=== PATIENT | male | born 1955 | race Caucasian/White ===

== ENCOUNTER 2023-10-28 05:36 | Emergency (ER) | payer MEDICARE, SELFPAY ==
--- NOTE | ~2023-10-28 | CT_ITS ---
EXAMINATION: CTA chest PE protocol DATE: 10/28/2023 09:53 INDICATION: Chest pain. Elevated d-dimer. TECHNIQUE: Computed tomography (CT) pulmonary angiogram of the chest was performed with 100 mL Omnipa que-350 intravenous contrast. Additional 3D reconstructions utilizing coronal maximum intensity proje ction (MIP) were performed. Automated exposure control and iterative reconstruction technique were em ployed. The dose-length product was 968.64 mGy-cm. COMPARISON: None FINDINGS: No pulmonary embolism. Mild atelectasis in the bilateral lower lobes. No pneumonia, pulmonary edema, pleural effusion or pneumothorax. Heart size is normal. Atherosclerotic coronary artery calcific lesi on. Thoracic aorta is normal in caliber with no dissection. No pathologically enlarged thoracic lymph adenopathy. There are multiple low-density gallstones scattered throughout the normal-appearing gallb ladder. There are bilateral renal cysts the largest on the right measuring 3.5 cm. lymphadenopathy. A symmetric mild left gynecomastia. Moderate thoracic spondylosis. IMPRESSION: 1. No pulmonary embolism or other acute cardiopulmonary disease. 2. Cholelithiasis. Reviewed, dictated and finalized at location A.
--- NOTE | ~2023-10-28 | XR_ITS ---
EXAMINATION: XR chest 2V DATE: 10/28/2023 06:08 INDICATION: Chest pain TECHNIQUE: PA and lateral views of the chest were obtained. COMPARISON: Chest radiograph dated 10/19/2009 FINDINGS: The lungs remain clear with no focal airspace opacities, pulmonary edema, pleural effusion or pneumot horax. The cardiomediastinal silhouette is normal. Moderate thoracic spondylosis. IMPRESSION: 1. No acute cardiopulmonary disease. Reviewed, dictated and finalized at location A.
[2023-10-28 05:37] VITALS: BP 178/84; PULSE 59; RESP 16; TEMP 36.4; O2SAT 98
--- NOTE | 2023-10-28 05:42 | ECG_ITS ---
Test Date: 2023-10-28 05:47:26 Measurements Intervals [place] Rate: 54 P: 39 ME: 224 QRS: 12 QRSD: 100 T: 32 QT: 426 QTc: 405 Interpretive Statements SINUS BRADYCARDIA WITH FIRST DEGREE AV BLOCK ABNORMAL ELECTROCARDIOGRAM No previous ECG available for comparison Electronically Signed On 10-28-2023 09:40:26 CDT by Tai Schuster M.D.
[2023-10-28 06:06] LABS: Basophils Percent Auto 0.5 % (0.2-1.2); Eosinophils Absolute Auto 0.1 K/mm3 (0-0.3); Eosinophils Percent Auto 0.6 % (0-4.4); Hematocrit 47.4 % (42.0-52.0); Hemoglobin 16.1 g/dL (14.0-18.0); Immature Granulocyte Absolute 0.02 K/mm3 (0.00-0.031); Immature Granulocyte Percent A 0.3 % (0-0.5); Lymphocytes Absolute Auto 1.65 K/mm3 (0.9-3.2); Lymphocytes Percent Auto 20.6 % (18.3-44.2); Mean Corpuscular Hemoglobin 31.8 pg (26-34); Mean Corpuscular Volume 93.7 fl (80-100); Mean Platelet Volume 9.8 fl (7.4-10.4); Monocytes Absolute Auto 0.4 K/mm3 (0.1-0.6); Monocytes Percent Auto 4.6 % (2.6-8.5); Neutrophils Absolute Auto 5.9 K/mm3 (1.3-6.7); Neutrophils Percent Auto 73.4 % (45.5-73.1); Platelet Count Result 184 k/mm3 (150-375); Red Blood Count 5.06 M/mm3 (4.6-6.20); Red Cell Distribution Width 14.6 % (11.5-14.5)
[2023-10-28 06:15] LABS: Alanine Aminotransferase 48 U/L (6-50); Albumin Level 4.4 g/dL (3.5-5.1); Alkaline Phosphatase 72 U/L (38-126); Anion Gap 12 mmol/L (4-12); Aspartate Amino Transferase 38 U/L (17-59); Bilirubin,Total 0.8 mg/dL (0.2-1.3); Blood Urea Nitrogen 22 mg/dL (9-20); Calcium 9.3 mg/dL (8.4-10.2); Carbon Dioxide 23 mmol/L (22-30); Chloride 101 mmol/L (98-107); Estimated CRCL calculation 78 ml/min; Estimated Glomerular Filt Rate > 60; Glucose 136 mg/dL (65-110); Lipase 110 U/L (23-300); Potassium 4.4 mmol/L (3.4-5.0); Sodium 136 mmol/L (137-145)
[2023-10-28 06:17] VITALS: O2SAT 99
[2023-10-28 06:17] LABS: Partial Thromboplastin Time 32.8 Seconds (22.3-36.8); Prothrombin Time 13.7 Seconds (11.1-14.7)
[2023-10-28 06:26] LABS: Troponin I < 0.012 ng/mL (0.000-0.034)
[2023-10-28 07:15] VITALS: BP 139/88; PULSE 57; RESP 12; O2SAT 99
--- NOTE | 2023-10-28 07:38 | ED.CHESTPAIN ---
HPI - Chest Pain General Chief Complaint: Chest Pain Stated Complaint: CP Time Seen by Provider: 10/28/23 06:51 History of Present Illness HPI narrative: 68-year-old male presenting to the emergency department for evaluation for chest pain that started approximately 7:00 p.m. last night. Patient states he was at rest watching TV when he had onset right upper quadrant pain that radiates down to his abdomen and then across to his left chest. Patient denies any prior history of [place] and has no cardiac stents. At time of evaluation patient is well-appearing and in no distress. Related Data Allergies Allergy/AdvReac Type Severity Reaction Status Date / Time Penicillins Allergy Mild Unknown Verified 10/28/23 05:41 amoxicillin Allergy Unknown Unknown Verified 10/28/23 05:41 Review of Systems Review of Systems: All systems reviewed & are unremarkable except as noted in HPI and below PMFSH Past Medical History Medical History Body mass index (BMI) of 40.1 to 44.9 in adult Family History Family History Father No problems noted. Mother No problems noted. 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 HEAD: normocephalic, atraumatic. EYES: PERRLA/EOMI, conjunctivae clear. NOSE: Normal no drainage EARS:TMS clear with good light reflex. THROAT: Pharynx clear, no exudate. NECK: Supple. No adenopathy, no masses. RESPIRATORY: Airway patent, respirations nonlabored. Clear to auscultation bilaterally, no rales, rhonchi, wheezing. CARDIOVASCULAR: Regular rate and rhythm without murmurs rubs or gallops. ABDOMINAL: Soft, nontender, nondistended, normal bowel sounds MUSCULOSKELETAL: Moves all extremities. Strength/ROM intact, No edema, No calf tenderness. NEURO: Alert. Cranial nerves II through XII intact. Grossly intact SKIN: Warm, dry. Normal Color Course Course Emergency Course: Patient felt improved with treatment. Patient was encouraged of close follow-up with his primary care physician for additional outpatient cardiac testing. Vital Signs Vital signs: Vital Signs Temperature 97.5 F L 10/28/23 05:37 Pulse Rate 59 L 10/28/23 05:37 Respiratory Rate 16 10/28/23 05:37 Blood Pressure 178/84 H 10/28/23 05:37 Pulse Oximetry 98 10/28/23 05:37 Oxygen Delivery Room Air 10/28/23 05:37 Temperature 98.4 F 10/28/23 10:52 Pulse Rate 58 L 10/28/23 10:52 Respiratory Rate 15 10/28/23 10:52 Blood Pressure 141/71 H 10/28/23 10:52 Pulse Oximetry 96 10/28/23 10:52 Oxygen Delivery Room Air 10/28/23 06:17 MDM - Chest Pain MDM Narrative Medical decision making narrative: 68-year-old male presenting to the emergency department for evaluation right upper quadrant abdominal pain that then radiated to his left chest. Patient is currently afebrile with no leukocytosis and a stable hemoglobin of 16.1. Patient has an INR of 1.0. Patient has no acute abnormalities on his CMP including a negative T bili AST ALT alk-phos lipase and patient's initial troponin was not elevated. Chest x-ray shows no acute cardiopulmonary abnormality. Patient did report that the medication helped for pain control. Repeat troponin was negative. Patient's D-dimer was elevated so CTA PE study was ordered and showed no evidence of pulmonary embolism. Patient was updated o
[2023-10-28] MEDS: ONDANSETRON INJ 4 MG/2 ML VIAL IV PUSH (07:41)
[2023-10-28] MEDS: HYDROmorphone HCL INJ (*CRX) 1 MG/ML SYR 0.5 MG IV PUSH (07:43)
--- NOTE | 2023-10-28 08:45 | ECG_ITS ---
Test Date: 2023-10-28 08:57:38 Measurements Intervals [place] Rate: 48 P: 22 TN: 214 QRS: 28 QRSD: 102 T: 49 QT: 453 QTc: 407 Interpretive Statements SINUS BRADYCARDIA WITH FIRST DEGREE AV BLOCK ABNORMAL ELECTROCARDIOGRAM Compared to ECG 10/28/2023 05:47:26 NO SIGNIFICANT DIFFERENCE Electronically Signed On 10-28-2023 09:44:19 CDT by Tai Schuster M.D.
[2023-10-28 09:00] VITALS: BP 134/70; PULSE 50; RESP 13; O2SAT 98
[2023-10-28 09:05] LABS: D Dimer 0.59 ug/mL (<0.48)
[2023-10-28 09:27] LABS: Troponin I < 0.012 ng/mL (0.000-0.034)
[2023-10-28] MEDS: KETOROLAC 15 MG/ML VIAL (*BKC) IV PUSH (10:04)
[2023-10-28 10:05] VITALS: BP 155/91; PULSE 60; RESP 12; O2SAT 97
[2023-10-28 10:52] VITALS: BP 141/71; PULSE 58; RESP 15; TEMP 36.9; O2SAT 96
== END 2023-10-28 10:54 | disposition home or self-care (01) ==
PROVIDERS: Student in an Organized Health Care Education/Training Program; Emergency Provider Emergency Medicine; PCP Family Medicine
DX: R07.9 Chest pain, unspecified (principal); Z87.891 Personal history of nicotine dependence; I44.0 Atrioventricular block, first degree; R00.1 Bradycardia, unspecified
CPT/HCPCS: 36415; 71046; 71275; 80053; 83690; 84484; 85025; 85380; 85610; 85730; 93005; 96374; 96375; 99284; J1170; J1885; J2405; Q9967